=== PATIENT | male | born 1970 | race Caucasian/White ===

== ENCOUNTER → 2023-12-20 | Outpatient (CLI) | payer OTHER ==
[2023-12-20 13:30] VITALS: BP 131/92; PULSE 86; RESP 16; TEMP 97.9; BMI 39.2
--- NOTE | 2023-12-20 16:17 | P.BASOAP ---
Subjective Progress Note Date: 12/20/23 Principal diagnosis: Morbid obesity Patient here for Lap-Band evaluation. Patient has not been seen in many years. Thinks he has a 14 cc band present. Starting weight was around 400. Current weight 289. Patient was incarcerated for 7 years and only recently released. Patient says he has vomiting daily. Only able to eat when laying flat. Some heartburn. Had a barium swallow showing some esophageal dysmotility. Patient was under the impression his band was empty. Objective - Vital Signs Vital signs: Vital Signs Temp 97.9 F 12/20/23 12:55 Pulse 86 12/20/23 12:55 Resp 16 12/20/23 12:55 BP 131/92 12/20/23 12:55 Pulse Ox FiO2 Intake & Output 12/19/23 12/20/23 12/20/23 18:59 06:59 18:59 Weight 131.088 kg - Exam Abdomen: Soft, nontender, nondistended Assessment/Plan (1) Morbid obesity Narrative/Plan: 53-year-old male with dysphagia and vomiting. Patient with history of lap band in the past. He thought his band was empty. After accessing band fluid was found and the band was emptied of 6 cc. Will monitor patient's symptoms. Return in 1 month. Check upper GI at that time. The patient's lap band port was palpated. The site was aseptically prepped. The Antony needle was advanced into the port. A total of 6 ml of fluid was removed. Pressure was held and a sterile dressing was applied. Plan: Date: 12/20/23 Initial Weight: 158.757 kg Initial BMI: 47.5 Current Weight: 131.088 kg Current BMI: 39.2 Type of Surgery: Adjustable Gastric Banding Total Volume in Band: Previous Volume: Volume Removed: Volume Added: Band Size:
== END ==
LOC: BARWHC3 12:40
PROVIDERS: ATTEND Surgery
DX: E66.01 Morbid (severe) obesity due to excess calories (principal); R13.10 Dysphagia, unspecified; R11.10 Vomiting, unspecified; Z68.39 Body mass index [BMI] 39.0-39.9, adult
CPT/HCPCS: 99202